=== PATIENT | male | born 1975 | race Caucasian/White ===

== ENCOUNTER → 2021-03-12 10:02 | Outpatient (BNVA) | payer OTHER, SELFPAY | PROVIDERS: Family Provider Family Medicine; PCP Family Medicine; Visit Provider Family Medicine | DX: I10 Essential (primary) hypertension (principal); E78.2 Mixed hyperlipidemia; Z12.5 Encounter for screening for malignant neoplasm of prostate | CPT/HCPCS: 80053; 80061; 82043; 85025; G0103 ==

== ENCOUNTER → 2022-03-11 10:16 | Outpatient (BNVA) | payer OTHER, SELFPAY | PROVIDERS: PCP Family Medicine; Visit Provider Family Medicine | DX: I10 Essential (primary) hypertension (principal); E78.2 Mixed hyperlipidemia; G25.0 Essential tremor | CPT/HCPCS: 80053; 80061; 82043; 85025 ==

== ENCOUNTER → 2023-01-06 13:16 | Outpatient (BNVA) | payer SELFPAY | PROVIDERS: PCP Family Medicine; Visit Provider Family Medicine | DX: I10 Essential (primary) hypertension (principal); E78.2 Mixed hyperlipidemia; Z12.5 Encounter for screening for malignant neoplasm of prostate; M72.2 Plantar fascial fibromatosis | CPT/HCPCS: 80053; 80061; 82043; 85025; G0103 ==

== ENCOUNTER 2023-03-19 17:42 | Emergency (ER) | payer MEDICAID, SELFPAY ==
--- NOTE | 2023-03-19 17:54 | XRR_ITS ---
PROCEDURE INFORMATION: Exam: XR Right Hand Exam date and time: 03/19/2023 6:15 PM Age: 47 years old Clinical indication: Right; Patient HX: RT hand pain; Puncture to barrios side of RT hand TECHNIQUE: Imaging protocol: Radiologic exam of the right hand. Views: 3 or more views. COMPARISON: No relevant prior studies available. FINDINGS: Bones/joints: Normal. Soft tissues: Soft tissue swelling in the thenar region of the right hand. XR/XR hand RT min 3V* [id number] IMPRESSION: 1. No acute fractures identified. 2. No radiopaque foreign body.
[2023-03-19 18:05] VITALS: BP 150/89; PULSE 74; TEMP 36.7; O2SAT 97; BMI 35.9
[2023-03-19] MEDS: tetanus-dipt-pertussis 0.5 mL SDV IM (18:59)
[2023-03-19] MEDS: cephALEXin 500 mg Capsule PO (18:59)
--- NOTE | 2023-03-19 20:17 | ED_ITS ---
HPI - Extremity Problem General: Chief complaint: Extremity Injury, Upper Stated complaint: right hand injury Time Seen by Provider: 03/19/23 17:54 History of Present Illness: Patient is a 47-year-old man that presents to the emergency department with a complex laceration to the right palm. Patient states that he was working with his goat up when he was scored by one of the horns. He has a 4 cm laceration to the right palm. No active bleeding here. Patient is not up-to-date on tetanus Review of Systems General: Reports: 10 or more systems reviewed and unremarkable except in HPI and below PFSH ED PFSH: Medical History Benign essential HTN History of placement of stent in anterior descending branch of left coronary artery Mixed hyperlipidemia [place] (myocardial infarction) At 37 Social History Smoking and tobacco/nicotine status: current every day tobacco/nicotine user cigarettes Packs smoked per day: 1.0 Alcohol intake: current Alcohol intake frequency: holidays/special occasions only Substance/Drug Use: never Adopted: No Household members: spouse Housing: House Marital status: Number of children: 1 Number of grandchildren: 0 Highest education level completed: Some College, No Degree service: No Current occupational status: employed Current occupation: [employer] Physical Exam Narrative: EXAM NARRATIVE: No acute distress Alert and oriented x 3 Afebrile vital signs stable Nonlabored breathing Nontoxic-appearing Right hand: Patient is able to flex and extend the wrist Able to give a thumbs up, make an okay sign, cross fingers, abduct fingers and make a fist Sensation intact light touch at the radial, ulnar, median nerve distribution Cap refill less than 3 seconds and radial pulses palpable He has a 4 cm laceration with fat evisceration. He describes a very dirty wound but cleaned it prior to arrival. There is tunneling towards the thumb and patient does report tenderness in the muscle of the thumb. Course Vital Signs: Vital signs: Vital Signs Temperature 98.0 F 03/19/23 18:05 Pulse Rate 74 03/19/23 18:05 Blood Pressure 150/89 03/19/23 18:05 Pulse Oximetry 97 03/19/23 18:05 Oxygen Delivery Me thod Room Air 03/19/23 18:05 MDM - Extremity (Nontraumatic) Medical Decision Making Here in the emergency department patient underwent XR imaging. Imaging reveals no fractures or radiopaque foreign bodies. The patient is unsure how far or how much of the horn penetrated his hand but based on the tunneling I would say its about 2 cm, possibly 3 cm. The patient's wound was irrigated initially by himself at home. Here in the emergency department he underwent irrigation by approximately 250 mL by a process safety engineering technologist. Patient's wound was infiltrated with lidocaine with epi. I used approximately 6 cc. After adequate anesthesia was achieved I worked on cleansing the wound. I was unsure how well it was irrigated so used another 500 cc of normal saline to irrigate inside the wound. The wound was explored using needle milk pickup driver and pickups. No visible contaminant was used I did track the tunneling and irrigated inside that tract with 30 cc. 3 horizontal mattress sutures were placed and the wound borders were well- approximated. Patient has been instructed to have the sutures removed in 2 weeks Patient is to return to the emergency department or PCP if he develops any redness warmth or drainage. All questions answered Tetanus updated Patient started on prophylactic antibiotics Patient given narcotic pain medication for home use. Lab Data Radiology Impressions Hand X-Ray 03/19/23 17:54 IMPRESSION: 1. No acute fractures identified. 2. No radiopaque foreign body. All radiology interpretation(s) finalized by discharge Discharge Plan Discharge Patient Disposition: Home Clinical Impression: Complicated laceration of hand Condition: Stable Prescriptions: New hydrocodone-acetaminophen 5-325 mg tablet 1 tab PO Q6H PRN (Reason: pain) Qty: 7 0RF cephalexin 500 mg capsule 500 mg PO Q6H 5 Days Qty: 20 0RF No Action aspirin [Adult Low Dose Aspirin] 81 mg tablet,delayed release (DR/EC) 81 mg PO DAILY lisinopril 2.5 mg tablet 2.5 mg PO DAILY Qty: 90 3RF propranolol 20 mg tablet 20 mg PO BID Qty: 180 1RF meloxicam 15 mg tablet 15 mg PO DAILY Qty: 90 1RF atorvastatin 20 mg tablet 20 mg PO DAILY Qty: 90 2RF Rx Instructions: 20 mg of atorvastatin po q hs Discharge Orders: Discharge ED (Routine); Ordered 03/19/23 Ordered By: David Panda Referrals: Rosario Colmenares DO [Primary Care Provider] - Discharge Diet: Advance as tolerated Discharge Activity: Resume usual activity Patient Instructions: Laceration (ED), Opioid Safety, Pain Management Activity Restrictions/Additional Instructions: Sutures out in 12 to 14 days. Sutures can be removed here in the emergency department or at your primary care office. Keep the wounds clean and dry. Do not submerge them in liquid but you can wash with soap and water and pat dry. If you develop any redness warmth or drainage return to the emergency department or primary care office. Coding Level of Care Code ED Plastic Molding Operator for Julia Cummings
== END 2023-03-19 20:27 | disposition home or self-care (01) ==
PROVIDERS: Emergency Provider Nurse Practitioner; PCP Family Medicine
DX: S61.412A Laceration without foreign body of left hand, initial encounter (principal); Z79.82 Long term (current) use of aspirin; I10 Essential (primary) hypertension; E78.2 Mixed hyperlipidemia; I25.2 Old myocardial infarction; W55.32XA Struck by other hoof stock, initial encounter; Z23 Encounter for immunization
CPT/HCPCS: 12042; 73130; 90471; 90715; 99283

== ENCOUNTER → 2024-01-18 14:00 | Outpatient (BNVA) | payer MEDICAID, SELFPAY | DX: K21.9 Gastro-esophageal reflux disease without esophagitis (principal); I10 Essential (primary) hypertension; E78.2 Mixed hyperlipidemia; M25.861 Other specified joint disorders, right knee; M25.562 Pain in left knee | CPT/HCPCS: 73562; 80053; 80061; 85025 ==

== ENCOUNTER → 2024-01-25 13:31 | Outpatient (BNVA) | payer MEDICAID, SELFPAY | PROVIDERS: Visit Provider Physician Assistant | DX: M17.12 Unilateral primary osteoarthritis, left knee (principal); M25.562 Pain in left knee | CPT/HCPCS: 73560; 73565; 99203 ==

== ENCOUNTER 2024-05-10 03:30 | Emergency (ER) | payer MEDICAID, SELFPAY ==
[2024-05-10 03:42] VITALS: BP 175/87; PULSE 75; RESP 18; TEMP 36.6; O2SAT 97; BMI 35.2
--- NOTE | 2024-05-10 03:45 | ED_ITS ---
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 Patient has had multiple things in his eye before. He usually just is able to wash them out on his own. But he has tried that this time and is unable to do that. Related Data Home Medications Medication Instructions Recorded Confirmed aspirin 81 mg tablet,delayed 81 mg PO DAILY 06/06/21 01/18/24 release (Adult Low Dose Aspirin) Previous Rx's Medication Instructions Recorded diclofenac sodium 1 % topical gel 2 g topical QID #100 grams 01/18/24 (Voltaren Arthritis Pain) lisinopril 2.5 mg tablet See Rx Instructions .Route 01/18/24 .COMPLEX #90 tabs propranolol 20 mg tablet See Rx Instructions .Route 01/18/24 .COMPLEX #180 tabs meloxicam 15 mg tablet See Rx Instructions .Route 03/07/24 .COMPLEX #60 tabs atorvastatin 20 mg tablet See Rx Instructions .Route 04/23/24 .COMPLEX #30 tabs famotidine 40 mg tablet See Rx Instructions .Route 04/23/24 .COMPLEX #60 tabs Allergies Allergy/AdvReac Type Severity Reaction Status Date / Time No Known Allergies Allergy Verified 01/25/24 13:36 Review of Systems General: Reports: 10 or more systems reviewed and unremarkable except in HPI and below PFSH ED PFSH: Medical History Arthritis of left knee GERD (gastroesophageal reflux disease) Left knee pain Mixed hyperlipidemia [place] (myocardial infarction) At 37 History of placement of stent in anterior descending branch of left coronary artery Benign essential HTN Social History Smoking and tobacco/nicotine status: current every day tobacco/nicotine user cigarettes Packs smoked per day: 1.0 Alcohol intake: current Alcohol intake frequency: holidays/special occasions o nly Substance/Drug Use: never Adopted: No Household members: spouse Housing: House Marital status: Number of children: 1 Number of grandchildren: 0 Highest education level completed: Some College, No Degree service: No Current occupational status: employed Current occupation: [employer] Physical Exam Const: COMMON NORMALS: no acute distress, average body habitus, patient oriented x3, no limitations, healthy appearing, alert and well nourished HENMT: COMMON NORMALS: normocephalic, atraumatic, hearing grossly normal bilaterally, external ears normal, Normal external nose present and moist oral mucous membranes HEAD & SCALP: normocephalic and atraumatic NOSE: Normal external nose present EXTERNAL EAR: Yes external ears normal Eye: COMMON NORMALS: Equal, round and reactive pupils present, EOMs intact bilaterally, conjunctivae normal and no scleral icterus EYELID: eyelids normal CONJUNCTIVA: Yes conjunctivae normal SCLERA: sclerae normal CORNEA: Yes fluorescein used (Small abrasion noted to the superior part of the cornea) PUPIL: Yes Equal, round and reactive pupils present Neck/C-Spine: COMMON NORMALS: full ROM, no lymphadenopathy, supple, no meningeal signs, no JVD and Thyroid normal THYROID: Thyroid normal Chest: COMMONS NORMALS: normal inspection of the chest and normal palpation of entire chest wall Resp: COMMON NORMALS: normal respiratory effort, No retractions, No use of accessory muscles and clear to auscultation bilaterally AUSCULTATION: clear to auscultation bilaterally Cardio: COMMON NORMALS: no JVD, regular rate, regular rhythm, S1 normal heart sound present, S2 normal heart sound present, No gallops present (Cardio), No clicks present (Cardio), No murmurs present (Cardio) and No rub (Cardio) RATE: regular rate RHYTHM: regular rhythm HEART SOUNDS: S1 normal heart sound present and S2 normal heart sound present Neuro: COMMON NORMALS: patient oriented x3 SENSORIUM/ORIENTATION: Yes alert MENINGEAL SIGNS: Yes no meningeal signs Course Vital Signs: Vital signs: Vital Signs Temperature 98 F 05/10/24 03:42 Pulse Rate 75 05/10/24 03:42 Respiratory Rate 18 05/10/24 03:42 Blood Pressure 175/87 05/10/24 03:42 Pulse Oximetry 97 05/10/24 03:42 MDM - Eye Problem Medical Decision Making Left eye was anesthetized with tetracaine, fluorescein dye applied, observed under black light, upper eyelid was inverted, all corneal abrasion noted no obvious foreign body, patient will be discharged home. Medical Records I reviewed the patient's medical records. Lab Data I reviewed the patient's lab results. No radiology studies performed this visit Discharge Plan Discharge Patient Disposition: Home Clinical Impression: Corneal abrasion Qualifiers: Encounter type: initial encounter Laterality: left Qualified Code(s): S05.02XA - Injury of conjunctiva and corneal abrasion without foreign body, left eye, initial encounter Condition: Stable Prescriptions: No Action aspirin [Adult Low Dose Aspirin] 81 mg tablet,delayed release (DR/EC) 81 mg PO DAILY lisinopril 2.5 mg tablet See Rx Instructions .ROUTE .COMPLEX Qty: 90 1RF Dose Instruction: Take 1 tablet by mouth once daily Rx Instructions: Take 1 tablet by mouth once daily propranolol 20 mg tablet See Rx Instructions .ROUTE .COMPLEX Qty: 180 0RF Dose Instruction: Take 1 tablet by mouth twice daily Rx Instructions: Take 1 tablet by mouth twice daily diclofenac sodium [Voltaren Arthritis Pain] 1 % gel 2 g topical QID Qty: 100 2RF Rx Instructions: apply to single elbow, wrist or hand; for hand includes palm/fingers/back of hand meloxicam 15 mg tablet See Rx Instructions .ROUTE .COMPLEX Qty: 60 1RF Dose Instruction: Take 1 tablet by mouth once daily Rx Instructions: Take 1 tablet by mouth once daily famotidine 40 mg tablet See Rx Instructions .ROUTE .COMPLEX Qty: 60 0RF Dose Instruction: Take 1 tablet by mouth twice daily Rx Instructions: Take 1 tablet by mouth twice daily atorvastatin 20 mg tablet See Rx Instructions .ROUTE .COMPLEX Qty: 30 0RF Dose Instruction: TAKE 1 TABLET BY MOUTH AT BEDTIME Rx Instructions: TAKE 1 TABLET BY MOUTH AT BEDTIME Discharge Orders: Discharge ED (Routine); Ordered 05/10/24 Ordered By: Emeterio Lockhart Referrals: Joaquina Coyle NP [Primary Care Provider] - 1 week Patient Instructions: Corneal Abrasion (ED) Activity Restrictions/Additional Instructions: Thank you for choosing [facility] for your healthcare needs today. Please realize that you were seen in the emergency department and that we are providing you with an emergency medical screening exam and this may not be a complete and all exclusive of all testing and/or medical workup we may need to determine your element or severity of your illness. It is very important that you follow-up as instructed with your primary care provider or specialist for the additional evaluation and to discuss your medical treatment plan. You may return to the emergency department should you have concerns or if your condition changes or worsens in any way. Coding Level of Care Code ED Tire Technician for Julia Cummings
[2024-05-10] MEDS: tetracaine 0.5% Op Soln 4 mL Btl 1 DROP EYE-BOTH (04:11)
[2024-05-10] MEDS: fluorescein 1 mg Strip EYE-BOTH (04:11)
[2024-05-10 04:36] VITALS: BP 122/98; PULSE 79; O2SAT 96
== END 2024-05-10 04:37 | disposition home or self-care (01) ==
PROVIDERS: Emergency Provider Emergency Medicine
DX: S05.02XA Injury of conjunctiva and corneal abrasion without foreign body, left eye, initial encounter (principal); Z79.82 Long term (current) use of aspirin; F17.210 Nicotine dependence, cigarettes, uncomplicated; I10 Essential (primary) hypertension; X58.XXXA Exposure to other specified factors, initial encounter
CPT/HCPCS: 99283

== ENCOUNTER → 2024-08-02 08:41 | Outpatient (BNVA) | payer MEDICAID, SELFPAY | PROVIDERS: PCP Family Medicine; Visit Provider Family Medicine | DX: I10 Essential (primary) hypertension (principal); Z12.5 Encounter for screening for malignant neoplasm of prostate | CPT/HCPCS: 80053; G0103 ==

== ENCOUNTER → 2024-09-24 08:46 | Outpatient (BNVA) | payer MEDICAID, SELFPAY | PROVIDERS: PCP Family Medicine; Visit Provider Family Medicine | DX: M10.9 Gout, unspecified (principal); Z13.6 Encounter for screening for cardiovascular disorders | CPT/HCPCS: 80053; 84550 ==

== ENCOUNTER 2024-11-13 21:15 | Emergency (ER) | payer MEDICAID, SELFPAY ==
[2024-11-13 21:23] VITALS: BP 156/89; PULSE 119; RESP 26; TEMP 37.3; O2SAT 94; BMI 35.9
--- NOTE | 2024-11-13 21:25 | ECG_ITS ---
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 Measurements Intervals [place] Rate: 117 P: 58 UT: 150 QRS: 68 QRSD: 78 T: 42 QT: 301 QTc: 421 Interpretive Statements SINUS TACHYCARDIA POSSIBLE INFERIOR MYOCARDIAL INFARCTION , PROBABLY OLD [30 ms Q WAVE IN II/aVF] ABNORMAL RHYTHM ECG No previous ECG available for comparison Electronically Signed On 11-14-2024 09:01:52 CDT by Francis Hurtado M.D. [email or web address]
[2024-11-13 22:04] VITALS: BP 139/88; PULSE 114; O2SAT 96
--- NOTE | 2024-11-13 22:44 | XRR_ITS ---
PROCEDURE INFORMATION: Exam: XR Chest Exam date and time: 11/13/2024 10:57 PM Age: 49 years old Clinical indication: Other: Left sided rib pain TECHNIQUE: Imaging protocol: Radiologic exam of the chest. Views: 2 views. COMPARISON: No relevant prior studies available. FINDINGS: Lungs: Unremarkable. No consolidation. Pleural spaces: Unremarkable. No pleural effusion. No pneumothorax. Heart/Mediastinum: Unremarkable. No cardiomegaly. Bones/joints: Unremarkable. XR/XR chest 2V* [id number] IMPRESSION: No acute findings.
--- NOTE | 2024-11-13 22:44 | ED_ITS ---
HPI - Extremity Problem General: Chief complaint: Extremity Injury, Upper Stated complaint: L shoulder & Rib Pain hard to breath Time Seen by Provider: 11/13/24 22:43 History of Present Illness: Patient presents with left shoulder and chest pain. The patient describes the pain as being right up across the shoulder area and feeling like it's down in the joint area. Earlier, the patient reported more severe pain, stating it felt like somebody was burying my ribs and trying to pull my shoulder outside. The pain has improved somewhat since arrival, though movement can still cause wincing pain. Patient is a current smoker. Patient reports using naproxen for pain relief in the past, particularly for migraines and back pain, and states it works well for them. Patient declined offer of stronger pain medication as the pain has decreased since arrival. Related Data Home Medications ?Medication ?Instructions ?Recorded ?Confirmed aspirin 81 mg tablet,delayed 81 mg PO DAILY 06/06/21 0 09/24/24 release (Adult Low Dose Aspirin) Previous Rx's ?Medication ?Instructions ?Recorded diclofenac sodium 1 % topical gel 2 g topical QID #100 grams 01/18/24 (Voltaren Arthritis Pain) atorvastatin 20 mg tablet 20 mg PO DAILY #90 tabs 07/23 05/18 famotidine 40 mg tablet 40 mg PO BID #180 tabs 08/02 propranolol 20 mg tablet 20 mg PO BID #180 tabs 08/02 meloxicam 15 mg tablet See Rx Instructions .Route 0 09/17/24 .COMPLEX #60 tabs allopurinol 300 mg tablet 300 mg PO DAILY #90 tabs 07/16 colchicine 0.6 mg tablet See Rx Instructions PO .COMP SINTIA #3 09/24/24 tabs lisinopril 5 mg tablet 5 mg PO DAILY #90 tabs 09/24 Allergies Allergy/AdvReac Type Severity Reaction Status Date / Time No Known Allergies Allergy Verified 11/13/24 21:26 Review of Systems General: Reports: 10 or more systems reviewed and unremarkable except in HPI and below PFSH ED PFSH: Medical History (Updated 11/13/24 @ 23:39 by Malik Umaña DO) Arthritis of left knee GERD (gastroesophageal reflux disease) Left knee pain Mixed hyperlipidemia [place] (myocardial infarction) At 37 History of placement of stent in anterior descending branch of left coronary artery Benign essential HTN Social History Smoking and tobacco/nicotine status: current every day tobacco/nicotine user cigarettes Packs smoked per day: 1.0 Alcohol intake: current Alcohol intake frequency: holidays/special occasions only Substance/Drug Use: never Adopted: No Household members: spouse Housing: House Marital status: Number of children: 1 Number of grandchildren: 0 Highest education level completed: Some College, No Degree service: No Current occupational status: employed Current occupation: [employer] Physical Exam Const: COMMON NORMALS: no acute distress, patient oriented x3, alert and well nourished HENMT: COMMON NORMALS: normocephalic HEAD & SCALP: normocephalic Chest: COMMONS NORMALS: normal inspection of the chest and normal palpation of entire chest wall Resp: COMMON NORMALS: normal respiratory effort, No retractions, No use of accessory muscles, clear to auscultation bilaterally and percussion normal AUSCULTATION: clear to auscultation bilaterally PERCUSSION: percussion normal GI: COMMON NORMALS: Normal to inspection, nondistended, normoactive bowel sounds present, Soft to palpation, non-tender, No hepatosplenomegaly present, no masses and no bruits PALPATION: Yes Soft to palpation and Yes No hepatosplenomegaly present : COMMON NORMALS: Yes no CVA tenderness BLADDER/KIDNEY EXAM: Yes no CVA tenderness Back/Pelvis: COMMON NORMALS: no CVA tenderness Extremity: COMMON NORMALS: normal to inspection, full ROM, capillary refill normal, no joint enlargement, no clubbing, cyanosis or edema, no calf tenderness and no pedal edema Neuro: COMMON NORMALS: patient oriented x3 SENSORIUM/ORIENTATION: Yes alert Skin: COMMON NORMALS: no rashes or lesions noted, turgor normal and no jaundice GENERAL SKIN EXAM: no rashes or lesions noted and turgor normal Course Vital Signs: Vital signs: Vital Signs Temperature 99.1 F 11/13/24 21:23 Pulse Rate 114 H 11/13/24 22:04 Respiratory Rate 26 H 11/13/24 21:23 Blood Pressure 139/88 11/13/24 22:04 Pulse Oximetry 96 11/13/24 22:04 Oxygen Delivery Me thod Room Air 11/13/24 22:04 MDM - Extremity (Nontraumatic) Medical Decision Making 1. Left shoulder/chest musculoskeletal pain: - Likely musculoskeletal in origin, possibly involving ligaments or tendons not visualized on X-ray - No evidence of cardiac or pulmonary etiology on current evaluation - Recommend alternating ibuprofen and Tylenol for pain management - Naproxen recommended as preferred NSAID due to anti-inflammatory properties and patient's positive prior response - Patient declined stronger pain medication at this time 2. Tobacco use: - Counseled patient on the negative effects of smoking on lung health. Cessation advised. - Noted concerning spots on lungs that require further evaluation - lung cancer screening - Discussed correlation between smoking and degenerative disc disease 3. Degenerative disc disease: - X-ray shows narrowing of intervertebral discs - Likely contributing to patient's musculoskeletal complaints - Will manage conservatively with anti-inflammatory medications XR interpretation done by ED provider, pending radiology final review Discharge Plan Discharge Patient Disposition: Home Clinical Impression: Left shoulder strain, Back strain, Tobacco abuse counseling Condition: Stable Prescriptions: No Action aspirin [Adult Low Dose Aspirin] 81 mg tablet,delayed release (DR/EC) 81 mg PO DAILY diclofenac sodium [Voltaren Arthritis Pain] 1 % gel 2 g topical QID Qty: 100 2RF Rx Instructions: apply to single elbow, wrist or hand; for hand includes palm/fingers/back of hand atorvastatin 20 mg tablet 20 mg PO DAILY Qty: 90 1RF famotidine 40 mg tablet 40 mg PO BID Qty: 180 1RF propranolol 20 mg tablet 20 mg PO BID Qty: 180 1RF lisinopril 5 mg tablet 5 mg PO DAILY Qty: 90 0RF allopurinol 300 mg tablet 300 mg PO DAILY Qty: 90 1RF Rx Instructions: Hold when taking colchicine colchicine 0.6 mg tablet See Rx Instructions PO .COMPLEX Qty: 3 3RF Rx Instructions: orally; Take two pills now, then one pill an hour later. meloxicam 15 mg tablet See Rx Instructions .ROUTE .COMPLEX Qty: 60 1RF Dose Instruction: Take 1 tablet by mouth once daily Rx Instructions: Take 1 tablet by mouth once daily Discharge Orders: Discharge ED (Routine); Ordered 11/13/24 Ordered By: Malik Umaña Referrals: Rosario Colmenares DO [Primary Care Provider, Family Practice] Discharge Diet: Advance as tolerated Discharge Activity: Resume usual activity Patient Instructions: Opioid Safety, Pain Management, Patient Portal & Luis Alberto Instructions Activity Restrictions/Additional Instructions: 1. Take Aleve / Naproxen +/- Tylenol. Consider lidocaine patch over the co unter. 2. Alternate ice and heat. Follow up with PCP if not improved in 3-5 days. 3. Return for new or worsening symptoms including uncontrolled pain. Print Language: Turkmen Coding Level of Care Code ED Electric Welder Helper for Julia Cummings
== END 2024-11-14 00:14 | disposition home or self-care (01) ==
PROVIDERS: Emergency Provider Family Medicine; PCP Family Medicine
DX: S46.912A Strain of unspecified muscle, fascia and tendon at shoulder and upper arm level, left arm, initial encounter (principal); S39.012A Strain of muscle, fascia and tendon of lower back, initial encounter; Z71.6 Tobacco abuse counseling; Z79.82 Long term (current) use of aspirin; F17.210 Nicotine dependence, cigarettes, uncomplicated; I10 Essential (primary) hypertension; X58.XXXA Exposure to other specified factors, initial encounter
CPT/HCPCS: 71046; 93005; 99284

== ENCOUNTER → 2025-02-27 08:18 | Outpatient (BNVA) | payer MEDICAID, SELFPAY | PROVIDERS: PCP Family Medicine; Visit Provider Family Medicine | DX: I10 Essential (primary) hypertension (principal) | CPT/HCPCS: 80053; 80061; 85025 ==

== ENCOUNTER 2025-04-23 06:50 | Day surgery (SDC) | payer MEDICAID, SELFPAY ==
[2025-04-23 07:02] VITALS: BP 157/92; PULSE 89; RESP 18; TEMP 37.1; O2SAT 96; BMI 37.3
--- NOTE | 2025-04-23 07:29 | P.HPUD_ITS ---
Surgery/Procedure H&P Update DATE OF PROCEDURE: April 23, 2025 DATE H&P PERFORMED: 03/26/25 H&P UPDATE INFORMATION: I have reviewed H&P completed within last 30 days, I have examined patient prior to procedure, No changes to prior documentation, H&P is in [facility] EMR on date indicated and Risks and benefits of the procedure reviewed PLANNED PROCEDURE: Operation Date: 04/23/25 07:55 Proposed Procedures p Colonoscopy [id number] Z12.11(Not Applicable) - Fransico Barragan MD
--- NOTE | 2025-04-23 07:30 | ANES.PREANE2 ---
Pre-Anesthetic Assessment Height/Weight: Height 1.83 m Weight 124.738 kg Temp Pulse Resp BP Pulse Ox O2 Del Method 98.7 F 89 18 157/92 96 Room Air 04/23/25 07:02 04/23/25 07:02 04/23/25 07:02 04/23/25 07:02 04/23/25 07:02 04/23/25 07:02 Preop Diagnosis: screening Operation Date: 04/23/25 07:55 Proposed Procedures p Colonoscopy [id number] Z12.11(Not Applicable) - Fransico Barragan MD Familial anesthetic complications: none Was Beta Flo taken within 24 hours: Yes Was Clonidine taken within 24 hours: N/A Last intake: Intake Last Liquid Date 04/22/25 Last Liquid Time 23:00 Last Solid Date 04/21/25 Last Solid Time 21:00 Last Intake: 23:30 Social Tobacco and No alcohol 1 pack(s) per day 35 pack years Exam clear to auscultation bilaterally and regular rate & rhythm Airway Cervical ROM: within normal limits Mallampati: Class II Dentition: other Comments: Comments: good dentition History/ROS No significant history except as noted Pulmonary Cough CV/HEM Hypertension and Myocardial Infarction (at age 37 stent in LAD) None reported Hepatic None reported GI None reported Metabolic Hyperlipidemia Musc/skel Osteoarthritis/DJD Neuropsych None reported Anesthetic Plan ASA status: 3 Anesthesia: Anesthesia Evaluation and MAC Risk of > 500 ml blood loss (7ml/kg in children): No Medications/Allergies Home Medications ?Medication ?Instructions ?Recorded ?Confirmed ?Last Taken ?Type aspirin 81 mg tablet,delayed 81 mg PO DAILY 06/06/21 04/23/25 04/22/25 History release (Adult Low Dose Aspirin) diclofenac sodium 1 % topical gel 2 g topical QID #100 grams 01/18/24 04/23/25 Unknown Rx (Voltaren Arthritis Pain) colchicine 0.6 mg tablet See Rx Instructions PO .COMPLEX #3 09/24/24 04/23/25 1 Month Ago Rx tabs ~03/22/25 allopurinol 300 mg tablet 300 mg PO DAILY #90 tabs 02/27/25 04/23/25 04/22/25 Rx lisinopril 5 mg tablet 5 mg PO DAILY #90 tabs 11/06/25 12/31/25 12/30/25 Rx meloxicam 15 mg tablet 15 mg PO DAILY #90 tabs 02/27/25 04/23/25 04/22/25 Rx propranolol 20 mg tablet 20 mg PO BID #180 tabs 02/27/25 04/23/25 04/22/25 Rx atorvastatin 40 mg tablet 40 mg PO DAILY #90 tabs 02/28/25 04/23/25 04/22/25 Rx famotidine 40 mg tablet See Rx Instructions .Route 04/21/25 04/23/25 04/22/25 Rx .COMPLEX #180 tabs Allergies Allergy/AdvReac Type Severity Reaction Status Date / Time No Known Allergies Allergy Verified 04/23/25 07:01 Current Medications Generic Name Dose Route Start Last Admin Trade Name Freq PRN Reason Stop Dose Admin Sodium Chloride 1,000 mls @ 15 mls/hr 04/23/25 06:54 04/23/25 07:12 Sodium Chloride 0.9% IV 04/24/25 06:53 15 mls/hr .Q24H PRN Administration COLONOSCOPY FLUIDS PFSH Anesthesia Medical History Arthritis of left knee GERD (gastroesophageal reflux disease) Left knee pain Mixed hyperlipidemia Old PR (myocardial infarction) At 37 History of placement of stent in anterior descending branch of left coronary artery Benign essential HTN Social History Smoking and tobacco/nicotine status: current every day tobacco/nicotine user cigarettes Packs smoked per day: 1.0 Alcohol intake: current Alcohol intake frequency: holidays/special occasions only Substance/Drug Use: never Adopted: No Household members: spouse Housing: House Marital status: Number of children: 1 Number of grandchildren: 0 Highest education level completed: Some College, No Degree service: No Current occupational status: employed Current occupation: [employer]
[2025-04-23 08:06] VITALS: BP 113/71; PULSE 83; RESP 16; TEMP 36.3; O2SAT 95
[2025-04-23 08:27] VITALS: BP 121/71; PULSE 77; RESP 18; O2SAT 96
--- NOTE | 2025-04-23 08:30 | ANE.PACU2 ---
Inpatient post-anesthesia follow up: Airway intact: Yes Vital signs: Temperature 97.4 F Pulse Rate 77 Respiratory Rate 18 Blood Pressure 121/71 Pulse Oximetry 96 Oxygen Delivery Me thod Room Air Oxygen Flow Rate Fraction of Inspir ed Oxygen Hydration adequate: Yes Nausea and vomiting: No Pain level: 1 Mental status: Baseline
== END 2025-04-23 08:32 | disposition home or self-care (01) ==
PROVIDERS: PCP Family Medicine; Visit Provider Surgery
PROC: 0DJD8ZZ Inspection of Lower Intestinal Tract, Via Natural or Artificial Opening Endoscopic (ICD-10-PCS; CPT 45378; principal; 2025-04-23 07:55)
DX: Z12.11 Encounter for screening for malignant neoplasm of colon (principal); K63.5 Polyp of colon; Z79.82 Long term (current) use of aspirin; K21.9 Gastro-esophageal reflux disease without esophagitis; E78.2 Mixed hyperlipidemia; I25.2 Old myocardial infarction; Z95.5 Presence of coronary angioplasty implant and graft; F17.210 Nicotine dependence, cigarettes, uncomplicated
CPT/HCPCS: 45385; 88305; J2704; J7030